=== PATIENT | male | born 1945 | race Two or more races ===

== ENCOUNTER 2019-05-31 07:25 | Outpatient (CLI) | payer OTHER | END 2019-05-31 08:30 | disposition home or self-care (01) | LOC: NUCLEAR 07:25 | DX: I25.10 Atherosclerotic heart disease of native coronary artery without angina pectoris (principal); I10 Essential (primary) hypertension; R00.2 Palpitations; R07.89 Other chest pain | CPT/HCPCS: 78452; 93017; A9500; J0153 ==

== ENCOUNTER 2019-08-02 06:00 | Day surgery (SDC) | payer OTHER ==
[~2019-08-02 06:00] MED LIST: FELDENE20 MG PO; IRBESARTAN150 MG PO; NORVASC2.5 MG PO; OMEPRAZOLE20 M1 PO; TOPROL XL25 M1 PO
[2019-08-02] MEDS ORDERED: POLY119PG PO (13:34)
[2019-08-02] MEDS ORDERED: SURFAK240 M1 PO (13:34)
[2019-08-02] MEDS ORDERED: PERCOCET 5-3251 EACH PO (13:34)
== END 2019-08-02 16:30 | disposition home or self-care (01) ==
LOC: CIR.AMB 06:00
DX: K40.90 Unilateral inguinal hernia, without obstruction or gangrene, not specified as recurrent (principal); K42.0 Umbilical hernia with obstruction, without gangrene; K43.6 Other and unspecified ventral hernia with obstruction, without gangrene